=== PATIENT | male | born 1995 | race Two or more races ===

== ENCOUNTER 2020-08-23 06:50 | Emergency (ER) | payer MEDICAID ==
[~2020-08-23] VITALS: Ht 165.1 cm; Wt 59.1 kg
[2020-08-23 07:34] VITALS: BP 147/69
== END 2020-08-23 07:47 | disposition home or self-care (01) ==
LOC: EMS 06:51
DX: F15.10 Other stimulant abuse, uncomplicated (principal); Z59.0 Homelessness
CPT/HCPCS: Z7502